=== PATIENT | female | born 1990 | race Caucasian/White ===

== ENCOUNTER 2020-12-04 11:08 | Emergency (ER) | payer BC, SELFPAY ==
[2020-12-04 11:37] VITALS: BP 137/77; PULSE 87; RESP 19; TEMP 36.9; O2SAT 100; BMI 22.4
[2020-12-04 12:00] LABS: UTC Strep Screen (Rapid) Negative (Negative)
--- NOTE | 2020-12-04 12:02 | HMH.EDUTC ---
[facility] [place] Disposition Clinical Impression: Sinusitis Qualifiers: Sinusitis location: unspecified location Chronicity: unspecified Qualified Code(s): J32.9 - Chronic sinusitis, unspecified Disposition: Home, Self-Care Condition on Discharge: Good Instructions: Sore Throat, Sinusitis, DI for Sinusitis Additional Instructions: *Monitor Temp, Over the counter Motrin or Tylenol as directed/as needed Tylenol every 4 hours and Motrin every 6 hours (as long as your family doctor has told you that you can take it) for fever or pain. and straight to ER if unable to lower temp less than 101.0 after medication given *Warm salt water gargles may help to soothe the throat *Throat Lozenges *Warm fluids like tea with honey may help to soothe the throat *Sleep elevated *Humidifier/Vaporizer *Flonase 2 sprays in each nostril daily but be aware that it may take 2-3 days before you notice improvement Take medication as prescribed Your throat swab was sent for culture. Those results are typically sent to your primary care. Be sure to follow up in 2-3 days with your family doctor/primary care physician if no improvement so they can review those result and treat if necessary. If you don?t have a primary care doctor, I recommend you get one but in the mean time, you will have to return to a walk in clinic Follow up IMMEDIATELY for new or worsening symptoms or no Noticeable improvement over the next 48-72 hours. 911 for difficulty breathing or swallowing Prescriptions: methylPREDNISolone [Medrol 4mg tab] 4 mg PO DIRECTED #21 tab Transmission Status: Pending to [id number] Azithromycin [Z-Carlos 250mg Tab] 250 mg PO DIRECTED #6 tab Transmission Status: Pending to [id number] Referrals: Lilia Kearney [Primary Care Provider] - As needed Time of Disposition: 12:07 Medical Decision Making - Cristian Inquiry Pt receiving controlled substance: No Cristian was queried for this patient: No Vital Signs: 12/04/20 11:37 Temperature 98.5 F Temperature Source Oral Pulse Rate [Left] 87 Respiratory Rate 19 Blood Pressure [Right Arm] 137/77 Blood Pressure Mean [Right Arm] 97 02 Sat by Pulse Oximetry 100 - Lab Data Lab results reviewed: Yes: I reviewed the patient's lab results. Lab Results 12/04/20 11:53: Strep Scn Rapid Clinic Negative Orders (Tests/Meds): ORDERS Category Date Time Status Strep Screen Confirmation Stat Micro 12/04/20 11:53 Received Medical Decision Narrative: Patient states that she is currently on her menstrual period and she has taken both azithromycin and Medrol dose pack in the past without complications or reactions [facility] [place] HPI - General Stated complaint: fever, cough, sore throat, headache Time Seen by Provider: 12/04/20 12:02 Mode of Arrival: Ambulatory Source of Information: Patient Limitations: No Limitations Description of Symptoms (Recalled from Triage Doc. by RN): pt c/o GRIMM, fever, nasal drainage, sore throat and cough ongoing for two weeks. HEENT Symptoms (Recalled from RN notes): Yes (sore throat, nasal drainage and GRIMM) Resp Symptoms (Recalled from RN notes): Yes (cough) Skin Symptoms (Recalled from RN notes): No MS Symptoms (Recalled from RN notes): No Functional Status (Recalled from RN notes): na - History of Present Illness Provider Complaint: Patient states that she has been having sinus congestion, cough, sore throat, pressure behind her eyes and drainage for about 2 weeks that has continued to get worse State that her throat hurts when she swallows and feels raw and having yellowish green mucous from her nose - Related Data Previous Rx's Medication Instructions Recorded Azithromycin [Z-Carlos 250mg Tab] 250 mg PO DIRECTED #6 tab 12/04/20 methylPREDNISolone [Medrol 4mg 4 mg PO DIRECTED #21 tab 12/04/20 tab] Allergies Allergy/AdvReac Type Severity Reaction Status Date / Time Penicillins Allergy Verified 12/04/20 12:03 - Worker's C
[2020-12-04 12:18] VITALS: BP 131/82; PULSE 87; RESP 19; TEMP 36.6
== END 2020-12-04 12:20 | disposition home or self-care (01) ==
PROVIDERS: Emergency Provider Nurse Practitioner; PCP Family Medicine
DX: J32.9 Chronic sinusitis, unspecified (principal); Z88.0 Allergy status to penicillin
CPT/HCPCS: 87880; 99202; G0463